=== PATIENT | male | born 1995 | race Asian ===

== ENCOUNTER 2021-07-15 14:03 | Emergency (ER) | payer OTHER ==
[2021-07-15 14:50] VITALS: BP 130/76; PULSE 81; TEMP 97.7; BMI 27.3
[2021-07-15] MEDS ORDERED: KETOROLAC TROMETHAMINE 30 MG/1 ML VIAL IVPUSH ONE (16:28)
[2021-07-15] MEDS ORDERED: KETOROLAC TROMETHAMINE 30 MG/1 ML VIAL ONE (16:44)
== END 2021-07-15 17:04 | disposition home or self-care (01) ==
LOC: JER 14:03
PROC: 3E0333Z Introduction of Anti-inflammatory into Peripheral Vein, Percutaneous Approach (ICD-10-PCS; principal; 2021-07-15)
DX: U07.1 COVID-19 (principal); R06.02 Shortness of breath; J02.0 Streptococcal pharyngitis
CPT/HCPCS: 71275-TC; 99284-25; Q9967